=== PATIENT | female | born 1985 | race Caucasian/White ===

== ENCOUNTER 2023-04-02 16:37 | Emergency (ER) | payer OTHER, SELFPAY ==
[2023-04-02 16:44] VITALS: BP 153/98; PULSE 112; RESP 20; TEMP 36.8; O2SAT 97
--- NOTE | 2023-04-02 16:54 | ED.URI ---
HPI - URI/Sore Throat General Chief Complaint: Upper Respiratory Infection Stated Complaint: SHortness of Breath History of Present Illness HPI Narrative: Patient presents requesting a COVID-19 test due to her roommate being tested positive for COVID-19 today. patient denies any symptoms no shortness of breath and no chest pain Related Data Home Medications Medication Instructions Recorded Confirmed albuterol sulfate 2.5 mg/3 mL 2.5 mg continuous nebulization QID 04/02/23 04/02/23 (0.083 %) solution for nebulization PRN Shortness Of Breath Or Wheezing albuterol sulfate 90 mcg/actuation 2 puff inhalation Q4-6H PRN 04/02/23 04/02/23 aerosol inhaler Shortness Of Breath Or Wheezing benztropine 1 mg tablet 1 mg PO DAILY 04/02/23 04/02/23 carbamazepine 200 mg tablet 200 mg PO BID 04/02/23 04/02/23 citalopram 40 mg tablet 40 mg PO DAILY 04/02/23 04/02/23 haloperidol 2 mg tablet 2 mg PO QHS 04/02/23 04/02/23 hydroxyzine HCl 25 mg tablet 25 mg PO TID 04/02/23 04/02/23 metformin 500 mg tablet 500 mg PO DAILY 04/02/23 04/02/23 quetiapine 400 mg tablet 400 mg PO QHS 04/02/23 04/02/23 trazodone 50 mg tablet 50 mg PO DAILY 04/02/23 04/02/23 valsartan 40 mg tablet 40 mg PO DAILY 04/02/23 04/02/23 Allergies Allergy/AdvReac Type Severity Reaction Status Date / Time No Known Allergies Allergy Verified 04/02/23 16:43 Review of Systems Review of Systems: CONSTITUTIONAL: Denies fever, chills, or sweats. EYES: Denies visual changes, redness, or discharge. ENT: Denies rhinorrhea, congestion, sore throat, or otalgia. CARDIOVASCULAR: Denies chest pain, palpitations, or edema. RESPIRATORY: Denies cough or dyspnea. GASTROINTESTINAL: Denies abdominal pain, nausea, vomiting, or diarrhea. GENITOURINARY: Denies dysuria or hematuria. SKIN: Denies rash or itching. MUSCULOSKELETAL: Denies back pain, joint pain, or myalgia. NEUROLOGIC: Denies headache, numbness, or weakness. PSYCHIATRIC: Denies anxiety or depression. PMFSH Comments At time of signature, agree with nursing past medical, surgical, social and family history. There is no relevant family history pertinent to the presenting complaint Exam Narrative: GENERAL: Well-appearing, well-nourished, and in no acute distress. HEAD: Normocephalic, atraumatic. EYES: PERRLA and EOMI. ENT: Nares clear, no rhinorrhea or epistaxis. Mucous membranes moist. NECK: Supple. CHEST: Clear to auscultation. No respiratory distress. HEART: Regular rate and rhythm. No murmur heard. Normal peripheral pulses. ABDOMEN: Soft, nontender, nondistended, normal active bowel sounds. EXTREMITIES: Normal range of motion. No edema. SKIN: Warm, dry, no rash. NEURO: No focal deficits. Alert and oriented x3. Parks Coma Scale Eye Opening: Spontaneous 4 Joyce Coma Scale Motor: Obeys Commands 6 Joyce Coma Scale Verbal: Oriented 5 Parks Coma Scale Total 15 Course Course Level of Care: Express Care Visit Vital Signs Vital signs: Vital Signs Temperature 36.8 C 04/02/23 16:44 Pulse Rate 112 H 04/02/23 16:44 Respiratory Rate 20 04/02/23 16:44 Blood Pressure 153/98 H 04/02/23 16:44 Pulse Oximetry 97 04/02/23 16:44 Oxygen Delivery Room Air 04/02/23 16:44 Temperature 36.8 C 04/02/23 16:44 Pulse Rate 112 H 04/02/23 16:44 Respiratory Rate 20 04/02/23 16:44 Blood Pressure 153/98 H 04/02/23 16:44 Pulse Oximetry 97 04/02/23 16:44 Oxygen Delivery Room Air 04/02/23 16:44 Please SERAFIN schedule a followup visit with your personal physician for further evaluation and treatment. Including recheck and discussion of your blood pressure. If your symptoms persist, change or worsen significantly before you can contact your personal physician then please, without delay, go to the emergency department for further evaluation Discharge Plan Discharge Clinical Impression: Upper respiratory infection Instructions: Upper Respiratory Infection (DC) Additional Instructions:
== END 2023-04-02 17:27 | disposition home or self-care (01) ==
PROVIDERS: Emergency Provider Nurse Practitioner Family; PCP Nurse Practitioner Family
DX: J06.9 Acute upper respiratory infection, unspecified (principal); Z20.822 Contact with and (suspected) exposure to COVID-19; I10 Essential (primary) hypertension; J45.909 Unspecified asthma, uncomplicated; F31.9 Bipolar disorder, unspecified
CPT/HCPCS: 87426; 99213; C9803; G0463